=== PATIENT | male | born 1975 | race Caucasian/White ===

== ENCOUNTER 2023-10-07 10:20 | Outpatient (REF) | payer MEDICAID, SELFPAY ==
--- NOTE | 2023-10-07 09:45 | TONSIL_PTH ---
PATIENT: Camilo Mccoy LOC: [facility] U#:[id number] AGE/SX: 47/M ROOM: RE10/07/[address]: Ross Loaiza MD : [id number] BED: DIS: 10/07/2023 SPEC #: [id number] RECD: 10/07/23 13:02 STATUS: MARY RENAE #: [id number] JUDY: 10/07/23 09:[address]: Ross Loaiza DEPT: Surgical Specimen RECD BY: Tomasa Plummer ENTERED: 10/07/23 13:03 SP TYPE: TONSIL OTHR DR: Julieta Bartlett Tissues: 1 - TONSIL BIOPSY Procedures: GROSS AND MICRO LEVEL 4 IMMUNOPEROXIDASE STAIN Comments: [id number]
== END 2023-10-07 10:21 | disposition home or self-care (01) ==
LOC: LBN 10:20
PROVIDERS: PCP Family Medicine; Visit Provider Otolaryngology
DX: R59.1 Generalized enlarged lymph nodes (principal); J35.8 Other chronic diseases of tonsils and adenoids
CPT/HCPCS: 88305; 88361

== ENCOUNTER 2024-02-17 05:28 | Outpatient (RCR) | payer MEDICAID, SELFPAY ==
[2024-02-03] MEDS: Normal Saline Flush 10 ML SYR IVP (10:16)
[2024-02-03 10:33] LABS: Abs Immature Grans 0.03 10^3/uL (0.0-0.06); Absolute Basophil Count 0.02 10^3/uL (0.0-0.2); Absolute Eosinophil Count 0.03 10^3/uL (0.0-0.7); Absolute Lymphocyte Count 1.08 10^3/uL (1.2-3.4); Absolute Monocyte Count 0.49 10^3/uL (0.1-0.8); Absolute Neutrophil Count 4.29 10^3/uL (1.2-6.7); Basophils % 0.3; Eosinophils % 0.5; HCT 44.6 % (40.0-50.0); HGB 15.7 g/dL (13.5-17.5); Immature Grans % 0.5; Lymphocytes % 18.2; MCH 33.3 pg (27.0-33.0); MCHC 35.2 % (32.0-36.0); MCV 95 fL (80-95); MPV 9.1 fL (8.0-11.0); Monocytes % 8.2; Neutrophils % 72.3; Platelet Count 281 10^3/uL (130-400); RBC 4.72 10^6/uL (4.36-5.78); RDW-SD 38.2 fL; WBC 5.94 10^3/uL (4.4-10.8)
[2024-02-03 11:03] LABS: ALT 38 U/L (16-63); AST 21 U/L (15-37); Albumin 3.7 g/dL (3.4-5.0); Alkaline Phosphatase 61 U/L (46-116); Anion Gap 7.4 mmol/L (3-11); BUN 20 mg/dL (7-18); Bilirubin, Total 0.7 mg/dL (0.2-1.0); CO2 30.6 mmol/L (21.0-32.0); CREATININE 0.7 mg/dL (0.70-1.30); Chloride 101 mmol/L (98-107); Estimated GFR 112.25 (mL/min/1.73m2); Glucose 91 mg/dL (74-106); Magnesium 2.1 mg/dL (1.8-2.4); Potassium 4.2 mmol/L (3.5-5.1); Sodium 139 mmol/L (136-145); Total Protein 7.5 g/dL (6.4-8.2)
[2024-02-10 10:06] LABS: Abs Immature Grans 0.01 10^3/uL (0.0-0.06); Absolute Basophil Count 0.01 10^3/uL (0.0-0.2); Absolute Eosinophil Count 0.03 10^3/uL (0.0-0.7); Absolute Lymphocyte Count 0.65 10^3/uL (1.2-3.4); Absolute Monocyte Count 0.36 10^3/uL (0.1-0.8); Absolute Neutrophil Count 3.48 10^3/uL (1.2-6.7); Basophils % 0.2; Eosinophils % 0.7; HGB 14.3 g/dL (13.5-17.5); Immature Grans % 0.2; Lymphocytes % 14.3; MCH 33.1 pg (27.0-33.0); MCHC 35.8 % (32.0-36.0); MCV 93 fL (80-95); MPV 9.1 fL (8.0-11.0); Monocytes % 7.9; Neutrophils % 76.7; Platelet Count 227 10^3/uL (130-400); RBC 4.32 10^6/uL (4.36-5.78); RDW 10.9 % (11.8-14.1); WBC 4.54 10^3/uL (4.4-10.8)
[2024-02-10] MEDS: Normal Saline Flush 10 ML SYR IVP (10:07)
[2024-02-10 10:38] LABS: ALT 31 U/L (16-63); AST 17 U/L (15-37); Albumin 3.4 g/dL (3.4-5.0); Alkaline Phosphatase 60 U/L (46-116); Anion Gap 8.6 mmol/L (3-11); BUN 17 mg/dL (7-18); Bilirubin, Total 0.4 mg/dL (0.2-1.0); CO2 28.4 mmol/L (21.0-32.0); CREATININE 0.8 mg/dL (0.70-1.30); Calcium 8.5 mg/dL (8.5-10.1); Chloride 103 mmol/L (98-107); Estimated GFR 107.82 (mL/min/1.73m2); Glucose 154 mg/dL (74-106); Magnesium 1.8 mg/dL (1.8-2.4); Potassium 3.8 mmol/L (3.5-5.1); Sodium 140 mmol/L (136-145); Total Protein 6.8 g/dL (6.4-8.2)
[2024-02-17] MEDS: Normal Saline Flush 10 ML SYR IVP (09:39)
[2024-02-17 10:13] LABS: Abs Immature Grans 0.01 10^3/uL (0.0-0.06); Absolute Basophil Count 0.01 10^3/uL (0.0-0.2); Absolute Eosinophil Count 0.03 10^3/uL (0.0-0.7); Absolute Lymphocyte Count 0.53 10^3/uL (1.2-3.4); Absolute Monocyte Count 0.34 10^3/uL (0.1-0.8); Basophils % 0.2; Eosinophils % 0.7; HCT 38.8 % (40.0-50.0); Immature Grans % 0.2; Lymphocytes % 12.5; MCH 33.6 pg (27.0-33.0); MCHC 36.1 % (32.0-36.0); MCV 93 fL (80-95); MPV 8.8 fL (8.0-11.0); Neutrophils % 78.4; Platelet Count 187 10^3/uL (130-400); RBC 4.17 10^6/uL (4.36-5.78); RDW 11.1 % (11.8-14.1); RDW-SD 37.2 fL; WBC 4.23 10^3/uL (4.4-10.8)
[2024-02-17 10:14] LABS: Absolute Neutrophil Count 3.32 10^3/uL (1.2-6.7)
[2024-02-17 10:25] LABS: ALT 32 U/L (16-63); AST 13 U/L (15-37); Albumin 3.3 g/dL (3.4-5.0); Alkaline Phosphatase 56 U/L (46-116); Anion Gap 7.9 mmol/L (3-11); BUN 11 mg/dL (7-18); Bilirubin, Total 0.4 mg/dL (0.2-1.0); CO2 29.1 mmol/L (21.0-32.0); CREATININE 0.9 mg/dL (0.70-1.30); Calcium 8.3 mg/dL (8.5-10.1); Chloride 102 mmol/L (98-107); Estimated GFR 104.05 (mL/min/1.73m2); Glucose 192 mg/dL (74-106); Magnesium 1.8 mg/dL (1.8-2.4); Potassium 3.6 mmol/L (3.5-5.1); Sodium 139 mmol/L (136-145); Total Protein 6.6 g/dL (6.4-8.2)
== END 2024-02-18 23:59 | disposition home or self-care (01) ==
LOC: INF 05:28
PROVIDERS: PCP Family Medicine; Visit Provider Nurse Practitioner
DX: C09.9 Malignant neoplasm of tonsil, unspecified (principal); Z45.2 Encounter for adjustment and management of vascular access device
CPT/HCPCS: 36591; 80053; 83735; 85025

== ENCOUNTER 2024-03-09 05:16 | Outpatient (RCR) | payer MEDICAID, SELFPAY ==
[2024-02-24] MEDS: Normal Saline Flush 10 ML SYR IVP (09:35)
[2024-02-24 09:55] LABS: Abs Immature Grans 0.01 10^3/uL (0.0-0.06); Absolute Basophil Count 0.01 10^3/uL (0.0-0.2); Absolute Eosinophil Count 0.02 10^3/uL (0.0-0.7); Absolute Lymphocyte Count 0.43 10^3/uL (1.2-3.4); Absolute Monocyte Count 0.39 10^3/uL (0.1-0.8); Absolute Neutrophil Count 2.17 10^3/uL (1.2-6.7); Basophils % 0.3 %; Eosinophils % 0.7 %; HCT 37.6 % (40.0-50.0); HGB 13.4 g/dL (13.5-17.5); Immature Grans % 0.3 %; Lymphocytes % 14.2 %; MCH 32.8 pg (27.0-33.0); MCHC 35.6 % (32.0-36.0); MCV 92 fL (80-95); MPV 8.5 fL (8.0-11.0); Monocytes % 12.9 %; Neutrophils % 71.6 %; Platelet Count 125 10^3/uL (130-400); RBC 4.09 10^6/uL (4.36-5.78); RDW 10.9 % (11.8-14.1); RDW-SD 35.9 fL; WBC 3.03 10^3/uL (4.4-10.8)
[2024-02-24 10:16] LABS: ALT 36 U/L (16-63); AST 14 U/L (15-37); Albumin 3.5 g/dL (3.4-5.0); Alkaline Phosphatase 55 U/L (46-116); Anion Gap 6.3 mmol/L (3-11); BUN 10 mg/dL (7-18); Bilirubin, Total 0.6 mg/dL (0.2-1.0); CO2 30.7 mmol/L (21.0-32.0); CREATININE 0.8 mg/dL (0.70-1.30); Calcium 8.7 mg/dL (8.5-10.1); Chloride 103 mmol/L (98-107); Estimated GFR 107.82 (mL/min/1.73m2); Glucose 98 mg/dL (74-106); Magnesium 1.9 mg/dL (1.8-2.4); Potassium 3.9 mmol/L (3.5-5.1); Sodium 140 mmol/L (136-145); Total Protein 6.7 g/dL (6.4-8.2)
[2024-03-02] MEDS: Normal Saline Flush 10 ML SYR IVP (09:44)
[2024-03-02 10:03] LABS: Abs Immature Grans 0.01 10^3/uL (0.0-0.06); Absolute Basophil Count 0.01 10^3/uL (0.0-0.2); Absolute Eosinophil Count 0.01 10^3/uL (0.0-0.7); Absolute Lymphocyte Count 0.45 10^3/uL (1.2-3.4); Absolute Monocyte Count 0.29 10^3/uL (0.1-0.8); Absolute Neutrophil Count 1.41 10^3/uL (1.2-6.7); Basophils % 0.5 %; Eosinophils % 0.5 %; HCT 34.6 % (40.0-50.0); HGB 12.5 g/dL (13.5-17.5); Immature Grans % 0.5 %; Lymphocytes % 20.6 %; MCH 32.6 pg (27.0-33.0); MCHC 36.1 % (32.0-36.0); MCV 90 fL (80-95); Monocytes % 13.3 %; Neutrophils % 64.6 %; Platelet Count 122 10^3/uL (130-400); RBC 3.84 10^6/uL (4.36-5.78); RDW-SD 35.2 fL; WBC 2.18 10^3/uL (4.4-10.8)
[2024-03-02 10:26] LABS: ALT 49 U/L (16-63); AST 22 U/L (15-37); Albumin 3.6 g/dL (3.4-5.0); Alkaline Phosphatase 58 U/L (46-116); Anion Gap 7.9 mmol/L (3-11); BUN 10 mg/dL (7-18); Bilirubin, Total 0.6 mg/dL (0.2-1.0); CO2 29.1 mmol/L (21.0-32.0); CREATININE 0.8 mg/dL (0.70-1.30); Calcium 8.7 mg/dL (8.5-10.1); Chloride 103 mmol/L (98-107); Estimated GFR 107.82 (mL/min/1.73m2); Glucose 101 mg/dL (74-106); Potassium 4.2 mmol/L (3.5-5.1); Sodium 140 mmol/L (136-145)
[2024-03-09] MEDS: Normal Saline Flush 10 ML SYR IVP (10:39)
[2024-03-09 10:46] LABS: Absolute Eosinophil Count 0.01 10^3/uL (0.0-0.7); Absolute Lymphocyte Count 0.29 10^3/uL (1.2-3.4); Absolute Monocyte Count 0.39 10^3/uL (0.1-0.8); Absolute Neutrophil Count 1.06 10^3/uL (1.2-6.7); Eosinophils % 0.6 %; HCT 32.3 % (40.0-50.0); HGB 11.8 g/dL (13.5-17.5); Lymphocytes % 16.6 %; MCH 33.1 pg (27.0-33.0); MCHC 36.5 % (32.0-36.0); MCV 91 fL (80-95); MPV 9.1 fL (8.0-11.0); Monocytes % 22.3 %; Neutrophils % 60.5 %; Platelet Count 229 10^3/uL (130-400); RBC 3.56 10^6/uL (4.36-5.78); RDW 12.3 % (11.8-14.1); RDW-SD 37.9 fL
[2024-03-09 11:01] LABS: ALT 31 U/L (16-63); AST 14 U/L (15-37); Albumin 3.5 g/dL (3.4-5.0); Alkaline Phosphatase 54 U/L (46-116); Anion Gap 4.3 mmol/L (3-11); BUN 19 mg/dL (7-18); Bilirubin, Total 0.5 mg/dL (0.2-1.0); CO2 30.7 mmol/L (21.0-32.0); CREATININE 0.8 mg/dL (0.70-1.30); Calcium 8.8 mg/dL (8.5-10.1); Chloride 105 mmol/L (98-107); Estimated GFR 107.82 (mL/min/1.73m2); Glucose 72 mg/dL (74-106); Magnesium 2.1 mg/dL (1.8-2.4); Potassium 4.4 mmol/L (3.5-5.1); Sodium 140 mmol/L (136-145); Total Protein 6.9 g/dL (6.4-8.2)
[2024-03-09 11:24] LABS: Diff Comment Agrees w/ Instrument; RBC Morphology Normal; WBC 1.75 10^3/uL (4.4-10.8)
== END 2024-03-20 23:59 | disposition home or self-care (01) ==
LOC: INF 05:16
PROVIDERS: PCP Family Medicine; Visit Provider Nurse Practitioner
DX: C09.9 Malignant neoplasm of tonsil, unspecified (principal); Z45.2 Encounter for adjustment and management of vascular access device
CPT/HCPCS: 36591; 80053; 83735; 85025

== ENCOUNTER 2024-03-23 12:11 | Outpatient (RCR) | payer MEDICAID, SELFPAY ==
[2024-03-23] MEDS: Normal Saline Flush 10 ML SYR IVP (12:18)
[2024-03-23 12:41] LABS: Abs Immature Grans 0.02 10^3/uL (0.0-0.06); Absolute Basophil Count 0.01 10^3/uL (0.0-0.2); Absolute Eosinophil Count 0.01 10^3/uL (0.0-0.7); Absolute Lymphocyte Count 0.35 10^3/uL (1.2-3.4); Absolute Monocyte Count 0.45 10^3/uL (0.1-0.8); Absolute Neutrophil Count 1.75 10^3/uL (1.2-6.7); Basophils % 0.4 %; Eosinophils % 0.4 %; HCT 33.3 % (40.0-50.0); HGB 11.8 g/dL (13.5-17.5); Immature Grans % 0.8 %; Lymphocytes % 13.5 %; MCH 33.2 pg (27.0-33.0); MCHC 35.4 % (32.0-36.0); MCV 94 fL (80-95); Monocytes % 17.4 %; Neutrophils % 67.5 %; Platelet Count 255 10^3/uL (130-400); RBC 3.55 10^6/uL (4.36-5.78); RDW 13.7 % (11.8-14.1); WBC 2.59 10^3/uL (4.4-10.8)
[2024-03-23 13:01] LABS: ALT 26 U/L (16-63); AST 17 U/L (15-37); Albumin 3.6 g/dL (3.4-5.0); Alkaline Phosphatase 52 U/L (46-116); Anion Gap 7.2 mmol/L (3-11); BUN 18 mg/dL (7-18); Bilirubin, Total 0.4 mg/dL (0.2-1.0); CO2 30.8 mmol/L (21.0-32.0); CREATININE 0.7 mg/dL (0.70-1.30); Calcium 8.9 mg/dL (8.5-10.1); Chloride 104 mmol/L (98-107); Estimated GFR 112.25 (mL/min/1.73m2); Glucose 91 mg/dL (74-106); Magnesium 2.1 mg/dL (1.8-2.4); Potassium 4.2 mmol/L (3.5-5.1); Sodium 142 mmol/L (136-145); Total Protein 6.9 g/dL (6.4-8.2)
== END 2024-04-19 23:59 | disposition home or self-care (01) ==
LOC: INF 12:11
PROVIDERS: PCP Family Medicine; Visit Provider Nurse Practitioner
DX: C09.9 Malignant neoplasm of tonsil, unspecified (principal)
CPT/HCPCS: 36591; 80053; 83735; 85025

== ENCOUNTER 2024-04-20 11:06 | Outpatient (RCR) | payer MEDICAID, SELFPAY ==
[2024-04-20 11:00] LABS: Abs Immature Grans 0.01 10^3/uL (0.0-0.06); Absolute Basophil Count 0.01 10^3/uL (0.0-0.2); Absolute Eosinophil Count 0.03 10^3/uL (0.0-0.7); Absolute Lymphocyte Count 0.45 10^3/uL (1.2-3.4); Absolute Monocyte Count 0.34 10^3/uL (0.1-0.8); Absolute Neutrophil Count 1.42 10^3/uL (1.2-6.7); Basophils % 0.4 %; Eosinophils % 1.3 %; HCT 35.2 % (40.0-50.0); HGB 12.4 g/dL (13.5-17.5); Immature Grans % 0.4 %; Lymphocytes % 19.9 %; MCH 33.8 pg (27.0-33.0); MCHC 35.2 % (32.0-36.0); MCV 96 fL (80-95); MPV 9.6 fL (8.0-11.0); Platelet Count 159 10^3/uL (130-400); RBC 3.67 10^6/uL (4.36-5.78); RDW 13.2 % (11.8-14.1); RDW-SD 47.2 fL; WBC 2.26 10^3/uL (4.4-10.8)
--- OUTSIDE RECORDS SUMMARY | 2024-04-20 11:07 | XMS_ITS | Continuity of Care Document ---
Author Name [facility] Address [address] [place] [address] Organization [facility] Address [address] [place] [address] Care Team Providers Care Field Recorder Name Role Phone OlivierLiborio dahl Primary Care Physician [phone] Kourtney Cisse Attending Physician Allergies, Adverse Reactions, Alerts No known allergies. Medications Active Medications Medication Dose Units Route Sig Start Date Status Ibuprofen [Motrin Ib] 200 MG ORAL Q6H PRN December 21 Active Cholecalciferol (Vitamin D3) 25 MCG ORAL DAILY Dec Active Ascorbic Acid (Vitamin C) MG ORAL December 21, 2021 Active Zinc 50 MG ORAL DAILY December 21, 2021 Active Garlic [Garlic Oil] 1000 MG ORAL DAILY December 21 Active Multivitamin 5 ML ORAL DAILY December 21, 2021 Activ e Problem List Active Problems Medical Problem Onset Date Status Tailor's bunion of both feet Act rosie Procedures Procedure Date Status Foot 3 vw Min Bilat December 21, 2021 completed Relevant Diagnostic Tests and/or Laboratory Data No known relevant diagnostic tests, laboratory data, and/or discharge summary. Advance Directives Advance Directive Response Recorded Date/ Time Do we have a copy on file here at [facility]? No December 21, 2021 2:54pm Does patient have an Advanced Directive? Yes December 21, 2021 2:54pm Pt has a Living Will? No December 21 2:54pm Pt has a Power of Pretzel Packer? Yes Rebecca prince 2021 2:54pm Chief Complaint and Reason for Visit Encounter Admit Date Chief Complaint Reason for V isit Departed Clinical December 21, 2021 3:34pm XR Hospital Discharge Instructions No known hospital discharge instructions. Hospital Discharge Medications Medication Dose Units Route Sig Qty Days Order Date Status Ins tructions Ibuprofen 200 MG ORAL Q6H PRN December 21, 2021 Active Cholecalciferol (Vitamin D3) 25 MCG ORAL DAILY December Active Ascorbic Acid (Vitamin C) MG ORAL December 21, 2021 Active Zinc 50 MG ORAL DAILY December 21, 2021 Active Garlic 1000 MG ORAL DAILY December 21, 2021 Active Multivitamin [address] [facility] 2021 Active Encounters Encounter Facility Location Admit/Visit Date Discharge/Departure Date Attending Provider Departed Clinical [facility] [place] Orthopedics December 21, 2021 3:34pm December 21, 2021 3:35pm Kourtney Cisse Departed Physician/Pr ovider Office Visit [facility] Orthopedic&Lizbeth ab December 21, 2021 2:54pm December 21, 2021 11:59pm Kourtney Cisse Functional Status No known functional status. Immunizations No known immunizations. Plan of Care No Known Plan of Care Information Social History No known social history. Vital Signs Vital Reading Result Reference Range Collection Date/Time Height 5 ft 8 in December 21, 2021 3 :13pm Weight 95.254 kg December 21, 2021 3 :13pm Pulse 90 BPM 60-100 December 21, 2021 3 :13pm Pulse Oximetry 98 % 95-100 December 21, 2021 3:13pm Blood Pressure Systolic 160 100-140 Rebecca h 2021 3:13pm Blood Pressure Diastolic 90 50-85 [facility] 2021 3:13pm Body Mass Index 31.9 December 21 3:13pm
--- OUTSIDE RECORDS SUMMARY | 2024-04-20 11:08 | XMS_ITS | Continuity of Care Document ---
Author Name Unknown Organization [facility] Address [address] [place] [address] Care Team Providers Care Director Of Digital Marketing Name Role Phone Shanae Waldron Primary Care Physician Encounter [facility] Date(s): 10/10/23 - 12/18/23 [facility] [address] [place] [address] Discharge Disposition: Home or Self Care Attending Physician: Juan Presley MD Admitting Physician: Juan Presley MD Referring Physician: Juan Presley MD Allergies, Adverse Reactions, Alerts No Known Medication Allergies Immunizations Given and Recorded Vaccine Date Status Refusal Reason tetanus/diphth/pertuss (Tdap) adult/adol 10/21/05 Recorded Medications ascorbic acid 1000 mg oral tablet 0 Refill(s), 0 Refill(s) Start Date: 09/25/23 Status: Ordered Multi Vitamin+ 0 Refill(s), 0 Refill(s) Start Date: 09/25/23 Status: Ordered naltrexone See Instructions, 4.5 mg tab, 0 Refill(s) Start Date: 09/25/23 Status: Ordered testosterone cypionate 200 mg/mL intramuscular solution 200 mg = 1 mL, Intramuscular, every 2 wk, 0 Refill(s) Start Date: 09/25/23 Status: Ordered Problem List Condition Confirmation Course Effective Dates Status H ealth Status Informant Elevated blood pressure reading Confirmed Active Fatigue due to excessive exertion Confirmed Active Testosterone deficiency Confirmed Active Elevated LDL cholesterol level Confirmed Active Neck swelling Confirmed Active Primary osteoarthritis of right knee Confirmed Active Vitamin D deficiency Confirmed Active Social History Social History Type Response Sex Male Patient Care team information Care Team Personnel Name: Shanae Waldron ND Position: No Access Member Role: Informed Provider Address: Address: [address] [place] [address]- Care Team Related Persons Name: SAMUEL YOUNG Name: ELMER YOUNG
--- OUTSIDE RECORDS SUMMARY | 2024-04-20 11:08 | XMS_ITS | Continuity of Care Document ---
Author Name Unknown Address [address] [place] [address] Phone [facility] Address [address] [place] [address] Phone Care Team Providers Care Therapeutic Activities Services Worker Name Role Phone Liborio Mondragon Primary Care Provider JOSE Cisse Attending Provider Chief Complaint and Reason for Visit Chief Complaint CALLUSES XR Reason for Visit Tailor's bunion of b oth feet Allergies, Adverse Reactions, Alerts No known allergies Social History Smoking Status Unknown if ever smoked Additional Data Assigned Sex Male Problems Active Problems Medical Problem Onset Date Status Tailor's bunion of both feet Act rosie Medications Medication Status Dose Units Route Directions Qty Days St art Date End Date Instructions Ibuprofen (Motrin Ib) 200 mg tablet Active 200 MG PO Q6H December 21, 2021 3:16pm Cholecalciferol (Vitamin D3) Active 25 MCG PO DAILY December 21, 2021 3:16pm Ascorbic Acid (Vitamin C) Active MG PO December 21, 2021 3:17pm Zinc Active 50 MG PO DAILY December 21, 2021 3:17pm Garlic (Garlic Oil) 1,000 mg capsule Active 1000 MG PO DAILY December 21, 2021 3:18pm Multivitamin Active 5 ML PO DAILY [facility] 2021 3:19pm Procedures Procedure Date Performed Status Foot 3 vw Min Bilat December 21, 2021 3:49pm compl eted Vital Signs Vital Reading Result Reference Range Collection Date/Time Height 68 [in_i] December 21, 2021 3:13pm Weight 95.25 kg December 21, 2021 3:13pm Heart Rate 90 /min 60-100 December 21, 2021 3:13pm Oxygen saturation by Pulse oximetry 98 % 95-10 0 December 21, 2021 3:13pm BP Systolic 160 mm[Hg] 100-140 December 21, 2021 3:13pm BP Diastolic 90 mm[Hg] 50-85 December 21, 2021 3:13pm BMI (Body Mass Index) 31.9 kg/m2 December 21, 2021 3:13pm Advance Directives Advance Directive Response Recorded Date/ Time Does patient have an Advanced Directive? Yes December 21, 2021 2:54pm Do we have a copy on file here at [facility]? No December 21, 2021 2:54pm Pt has a Living Will? No December 21, 2021 2:54pm Do we have a copy on file here at [facility]? No December 21, 2021 2:54pm Pt has a Power of Measuring Machine Tender? Yes Rebecca prince 2021 2:54pm Do we have a copy on file here at [facility]? No December 21, 2021 2:54pm Insurance Providers Guarantor REBECCA YOUNG Address [address] [facility] [address] Contact Info. Home Phone: Payer Policy Id Coverage Id Subscriber's Name Subscriber Id Effective Date Expiration Date [facility] [id number] REBECCA YOUNG [id number] [place] [id number] REBECCA YOUNG [id number] SELF PAY Self N/A Encounters Encounter Location(s) Arrival/Admit Date Discharge/Depart Date Provider(s) Departed [facility] December 21, 2021 2:54pm December 21, 2021 11:59pm Kourtney Cisse DPM Departed Clinical [facility] Orthopedics December 21, 2021 3:34pm December 21, 2021 3:35pm Kourtney Cisse DPM Recent Diagnosis Onset Date Tailor's bunion of both feet Assessments Diagnosis Onset Date Resolution Status Tailor's bunion of both feet acute Plan of Treatment Debrided callus bilateral fifth metatarsals with #10 blade. Patient tolerated well. Educated patient about tailor's bunion, provided handout. Recommend wider shoe gear and provided patient with multiple shoe options including Hoka, Altra. We also discussed surgical correction of the tailor's bunion, patient is a lisa and unable to consider surgical correction at this time. Patient return as needed. Future Tests Future scheduled test information is unavailable Pending Tests Pending diagnostic test information is unavailable Future Visits Future appointment information is unavailable Referrals to Other Providers Referral information is unavailable Future Procedures Future procedure information is unavailable Future Medications Future medication information is unavailable Patient Instructions Patient instructions are unavailable
--- OUTSIDE RECORDS SUMMARY | 2024-04-20 11:08 | XMS_ITS | Continuity of Care Document ---
Author Name Unknown Organization [facility] Address [address] [place] [address] Care Team Providers Care Industrial Service Technician Name Role Phone Shanae Waldron Primary Care Physician [phone] Encounter [facility] Date(s): 05/28/23 - 05/28/23 [facility] [address] [place] [address] Discharge Disposition: Home or Self Care Attending Physician: Shanae Waldron ND Admitting Physician: Shanae Waldron ND Referring Physician: Shanae Waldron ND Allergies, Adverse Reactions, Alerts No Known Medication Allergies Assessment and Plan Diagnostic Tests Pending * Insulin [facility] 05/28/23 Immunizations Given and Recorded Vaccine Date Status Refusal Reason tetanus/diphth/pertuss (Tdap) adult/adol 10/21/05 Recorded Results Laboratory List Name Date Comprehensive Metabolic Panel 05/28/23 DHEA Sulfate [facility] 05/28/23 Hemoglobin A1c 05/28/23 Lipid Panel 05/28/23 Testosterone, Total and Free [facility] 05/28/23 Vitamin D, 25-OH Total [facility] 05/28/23 Most recent to oldest [Reference Range]: 1 BUN [7-18 mg/dL] 13 mg/dL (05/28/23 11:35 AM) Cholesterol Total [50-200 mg/dL] 253 mg/ dL *HI* (05/28/23 11:35 AM) LDL [0-130 mg/dL] 184 mg/dL *HI* (05/28/23 11:35 AM) Glucose Level [74-106 mg/dL] 94 mg/dL (05/28/23 11:35 AM) Potassium Level [3.5-5.1 mmol/L] 3.9 mmo l/L (05/28/23 11:35 AM) HDL [40-60 mg/dL] 53 mg/dL (05/28/23 11:35 AM) AST [15-37 unit/L] 34 unit/L (05/28/23 11:35 AM) ALT [16-63 unit/L] 71 unit/L *HI* (05/28/23 AM) Sodium Level [136-145 mmol/L] 139 mmol/L (05/28/23 11:35 AM) Triglycerides [0-150 mg/dL] 82 mg/dL (05/28/23 11:35 AM) Calcium Level [8.5-10.1 mg/dL] 8.9 mg/dL (05/28/2335 AM) Albumin Level [3.4-5.0 g/dL] 3.9 g/dL (05/28/23:35 AM) Protein Total [6.4-8.2 g/dL] 7.3 g/dL (05/28/23:35 AM) Bilirubin Total [0.2-1.0 mg/dL] 0.6 mg/d L (05/28/23:35 AM) Alk Phos [46-146 unit/L] 48 unit/L (05/28/23:35 AM) CO2 [21-32 mmol/L] 28 mmol/L (05/28/23 11:35 AM) eGFR Non-AA [>=60] 107 (05/28/23 11:35 AM) eGFR AA [>=60] 107 (05/28/23 11:35 AM) Hemoglobin A1c [4.0-6.0 %] 5.4 % (05/28/23 11:35 AM) Chloride Level [98-107 mmol/L] 103 mmol/ L (05/28/23 11:35 AM) Creatinine Level [0.70-1.30 mg/dL] 0.83 mg/dL (05/28/23:35 AM) DHEA Sulfate [facility] [136-448 mcg/dL] 311 mc g/dL 2 *NA* (05/28/23:35 AM) Testosterone [facility] [229-902 ng/dL] 175 ng/ dL 3 *LOW* (05/28/23 11:35 AM) Sex Hormone Bnd Glob [facility] [11.5-54.5 nmol /L] 27.1 nmol/L 4 *NA* (05/28/23 11:35 AM) Free Testosterone [facility] [4.0-14.5 ng/dL] 3 .7 ng/dL 5 *LOW* (05/28/23 11:35 AM) Vitamin D, 25-OH, Total [facility] [30-100 ng/m L] 40 ng/mL 6 *NA* (05/28/23 11:35 AM) 2Result Comment: Test performed [place] [id number] 3Result Comment: The results of this assay can be falsley elevated due to the consumption of Biotin. 4Result Comment: The results of this assay can be falsely lowered due to the consumption of Biotin. 5Result Comment: This test is not recommended in patients with plasma protein abnormalities. Test performed [place] [id number] 6Result Comment: Vitamin D 25,OH Interpretive Ranges: Deficiency: <10.0 ng/mL Insufficiency: 10.0 - 30.0 ng/mL Sufficiency: 30.0 - 100.0 ng/mL Toxicity: >100.0 ng/mL Test performed [place] [id number] Social History Social History Type Response Sex Male Patient Care team information Care Team Personnel Name: Shanae Waldron ND Position: No Access Member Role: Informed Provider Address: Address: [address] [place], [place] [id number] [place] [address] Care Team Related Persons Name: ELMER YOUNG
--- OUTSIDE RECORDS SUMMARY | 2024-04-20 11:08 | XMS_ITS | Continuity of Care Document ---
Author Name [facility] Address [address] [place] [address] Organization [facility] Address [address] [place] [address] Support Name Relationship Address Phone Kourtney Cisse Attending Provider [facility] Or thopaedics [address] [facility] [address] [place] [address] Liborio Mondragon Primary Care Provider [address] [place] [address] Referral, Self Referring Provider Unknown Unavail able Allergies, Adverse Reactions, Alerts No known allergies. [...] have a copy on file here at [facility]? No December 21, 2021 2:54pm Does patient have an Advanced Directive? Yes December 21, 2021 2:54pm Pt has a Living Will? No December 21 2:54pm Pt has a Power of Butter Liquefier? Yes Rebecca prince 2021 2:54pm Chief Complaint and Reason for Visit Encounter Admit Date Chief Complaint Reason for V isit Registered Physician/Provider Office Visit December 21, 2021 2:54pm CALLUSES Tailor's bunion of both feet Hospital Discharge Instructions No known hospital discharge [...] 2021 Active Multivitamin 5 ML ORAL DAILY [facility] 2021 Active Encounters Encounter Facility Location Admit/Visit Date Discharge/Departure Date Attending Provider Registered Clinical [facility] [place] [facility] Orthopedics December 21, 2021 3:34pm Kourtney Cisse Registered Physician/Pr ovider Office Visit [facility] Orthopedic&Lizbeth ab December 21, 2021 2:54pm Kourtney Cisse Encounter Diagnosis Onset Date Tailor's bunion of both feet Functional Status No known functional status. Immunizations [...] 2021 3:13pm Blood Pressure Diastolic 90 50-85 [facility] 2021 3:13pm Body Mass Index 31.9 December 21 3:13pm
--- OUTSIDE RECORDS SUMMARY | 2024-04-20 11:08 | XMS_ITS | Continuity of Care Document ---
Author Name Unknown Address [address] [place] [address] Phone [facility] Address [address] [place] [address] Phone Care Team Providers Care Real Estate Director Name Role Phone Liborio Mondragon Primary Care [...] 3:18pm Multivitamin Active 5 ML PO DAILY [facility] 2021 3:19pm Procedures Procedure Date Performed Status [...] have a copy on file here at [facility]? No December 21, 2021 2:54pm Pt has a Living Will? No December 21, 2021 2:54pm Do we have a copy on file here at [facility]? No December 21, 2021 2:54pm Pt has a Power of Value Engineer? Yes Rebecca prince 2021 2:54pm Do we have a copy on file here at [facility]? No December 21, 2021 2:54pm Insurance Providers Guarantor REBECCA YOUNG Address [address] [facility] [address] Contact Info. Home Phone: Payer Policy Id Coverage Id Subscriber's Name Subscriber Id Effective Date Expiration Date [facility] [id number] REBECCA YOUNG [id number] [place] [id number] REBECCA YOUNG [id number] SELF PAY Self N/A Encounters Encounter Location(s) Arrival/Admit Date Discharge/Depart Date Provider(s) [facility]ed [facility] December 21, 2021 2:54pm December 21, 2021 11:59pm Kourtney Cisse DPM [facility] December 21, 2021 3:34pm December 21, [...]
--- OUTSIDE RECORDS SUMMARY | 2024-04-20 11:08 | XMS_ITS | Continuity of Care Document ---
Author Name Unknown Organization [facility] Address [address] [place] [address] Care Team Providers Care Fuel Storage Technician Name Role Phone Shanae Waldron Primary Care Physician [phone] Encounter [facility] Date(s): 09/04/23 - 09/04/23 [facility] [address] [place] [address] Discharge Disposition: Home or Self Care Attending Physician: Shanae Waldron ND Admitting Physician: Shanae Waldron ND Referring Physician: Shanae Waldron ND Allergies, Adverse Reactions, Alerts No Known Medication Allergies Immunizations Given and Recorded Vaccine Date Status Refusal Reason tetanus/diphth/pertuss (Tdap) adult/adol 10/21/05 Recorded Social History Social History Type Response Sex Male Patient Care team information Care Team Personnel Name: Shanae Waldron ND Position: No Access Member Role: Informed Provider Address: Address: [address] [place] [address] [place] Care Team Related Persons Name: SAMUEL YOUNG Name: ELMER YOUNG
--- OUTSIDE RECORDS SUMMARY | 2024-04-20 11:08 | XMS_ITS | Continuity of Care Document ---
Author Name Unknown Organization [facility] Address [address] [place] [address] Care Team Providers Care Chief Projectionist Name Role Phone Shanae Waldron Primary Care Physician [facility] Date(s): 08/16/23 - 08/16/23 [facility] [address] [place] [address] Discharge Disposition: Home or Self Care Attending Physician: Shanae Waldron ND Admitting Physician: Shanae Waldron ND Referring Physician: Shanae Waldron ND Allergies, Adverse Reactions, Alerts No Known Medication Allergies Immunizations Given and Recorded Vaccine Date Status Refusal Reason tetanus/diphth/pertuss (Tdap) adult/adol 10/21/05 Recorded Results Laboratory List Name Date Automated Diff 08/16/23 CBC w/ Diff 08/16/23 Estradiol, Adults [facility] 08/16/23 PSA Screen 08/16/23 Testosterone, Total and Free [facility] 3 Most recent to oldest [Reference Range]: 1 WBC [5.0-10.0 x10^3/mcL] 3.6 x10^3/mcL *LOW* (08/16/23 8:44 AM) RBC [4.6-6.0 x10^6/mcL] 4.5 x10^6/mcL *LOW* (08/16/23 8:44 AM) Neutro Auto [40.0-75.0 %] 54.4 % (08/16/23 8:44 AM) Lymph Auto [20.0-50.0 %] 32.8 % (08/16/23 8:44 AM) Baca Auto [2.0-15.0 %] 11.4 % (08/16/23 8:44 AM) Basophil Auto [0.0-1.0 %] 0.3 % (08/16/23 8:44 AM) MCV [80.0-96.0 fL] 95.1 fL (08/16/23 8:44 AM) MCHC [31.0-35.0 g/dL] 35.4 g/dL *HI* (08/16/23 8:44 AM) Hct [41.0-51.0 %] 42.4 % (08/16/23 8:44 AM) MCH [26.0-32.0 pg] 33.6 pg *HI* (08/16/23 8:44 AM) Neutro Absolute 2.0 x10^3/mcL *NA* (08/16/23 8:44 AM) Hgb [14.0-18.0 g/dL] 15.0 g/dL (08/16/23 8:44 AM) Platelets [130-450 x10^3/mcL] 198 x10^3/ mcL (08/16/23 8:44 AM) RDW-CV [11.5-14.5 %] 11.7 % (08/16/23 8:44 AM) Imm Gran Auto [0.0-0.9 %] 0.3 % (08/16/23 8:44 AM) Estradiol [facility] [<40 pg/mL] 35 pg/mL 1 *NA* (08/16/23 8:44 AM) Testosterone [facility] [229-902 ng/dL] 783 ng/ dL 2 *NA* (08/16/23 8:44 AM) Sex Hormone Bnd Glob [facility] [11.5-54.5 nmol /L] 28.6 nmol/L 3 *NA* (08/16/23 8:44 AM) Free Testosterone [facility] [4.0-14.5 ng/dL] 1 9.4 ng/dL 4 *HI* (08/16/23 8:44 AM) PSA Total Screening [0.00-4.00 ng/mL] 1. 20 ng/mL 5 (08/16/23 8:44 AM) Eos, Auto [1.0-6.0 %] 0.8 % *LOW* (08/16/23 8:44 AM) 1Result Comment: Test performed [place] [address] 2Result Comment: The results of this assay can be falsley elevated due to the consumption of Biotin. 3Result Comment: The results of this assay can be falsely lowered due to the consumption of Biotin. 4Result Comment: This test is not recommended in patients with plasma protein abnormalities. Test performed [place] [address] 5Interpretive Data: The testing method is an heterogeneous enzyme Immunoassay manufactured by [employer] and performed on the LiveGOL system. Values obtained with different assay methods or kits may be different and cannot be used interchangeably. Test results cannot be interpreted as absolute evidence for the presence or absence of malignant disease. Social History Social History Type Response Sex Male Patient Care team information Care Team Personnel Name: Shanae Waldron ND Position: No Access Member Role: Informed Provider Address: Address: [address] [place] [id number] [place] [address] Care Team Related Persons Name: SAMUEL YOUNG Name: ELMER YOUNG
[2024-04-20 11:18] LABS: ALT 25 U/L (16-63); AST 15 U/L (15-37); Albumin 3.6 g/dL (3.4-5.0); Alkaline Phosphatase 61 U/L (46-116); Anion Gap 6.7 mmol/L (3-11); BUN 10 mg/dL (7-18); Bilirubin, Total 0.66 mg/dL (0.2-1.0); CO2 31.3 mmol/L (21.0-32.0); CREATININE 0.7 mg/dL (0.70-1.30); Calcium 8.6 mg/dL (8.5-10.1); Chloride 105 mmol/L (98-107); Estimated GFR 112.25 (mL/min/1.73m2); Glucose 122 mg/dL (74-106); Magnesium 1.8 mg/dL (1.8-2.4); Potassium 3.7 mmol/L (3.5-5.1); Sodium 143 mmol/L (136-145); Total Protein 6.8 g/dL (6.4-8.2)
[2024-04-20] MEDS: Normal Saline Flush 10 ML SYR IVP (15:04)
== END 2024-05-20 23:59 | disposition home or self-care (01) ==
LOC: INF 11:06
PROVIDERS: PCP Family Medicine; Visit Provider Nurse Practitioner
DX: C09.9 Malignant neoplasm of tonsil, unspecified (principal); Z45.2 Encounter for adjustment and management of vascular access device
CPT/HCPCS: 36591; 80053; 83735; 85025

== ENCOUNTER 2024-09-21 03:07 | Outpatient (RCR) | payer OTHER, SELFPAY ==
[2024-09-21 12:41] LABS: Abs Immature Grans 0.01 10^3/uL (0.0-0.06); Absolute Basophil Count 0.01 10^3/uL (0.0-0.2); Absolute Eosinophil Count 0.01 10^3/uL (0.0-0.7); Absolute Lymphocyte Count 0.53 10^3/uL (1.2-3.4); Absolute Monocyte Count 0.34 10^3/uL (0.1-0.8); Absolute Neutrophil Count 2.09 10^3/uL (1.2-6.7); Basophils % 0.3 %; Eosinophils % 0.3 %; HGB 14.8 g/dL (13.5-17.5); Immature Grans % 0.3 %; Lymphocytes % 17.7 %; MCH 33.9 pg (27.0-33.0); MCHC 36.1 % (32.0-36.0); MCV 94 fL (80-95); MPV 9.1 fL (8.0-11.0); Monocytes % 11.4 %; Platelet Count 186 10^3/uL (130-400); RBC 4.37 10^6/uL (4.36-5.78); RDW 11.2 % (11.8-14.1); RDW-SD 38.7 fL; WBC 2.99 10^3/uL (4.4-10.8)
[2024-09-21 13:05] LABS: ALT 49 U/L (16-63); AST 28 U/L (15-37); Albumin 3.9 g/dL (3.4-5.0); Alkaline Phosphatase 63 U/L (46-116); Anion Gap 9.4 mmol/L (3-11); BUN 16 mg/dL (7-18); Bilirubin, Total 0.64 mg/dL (0.2-1.0); CO2 25.6 mmol/L (21.0-32.0); Chloride 108 mmol/L (98-107); Estimated GFR 91.69 (mL/min/1.73m2); Glucose 98 mg/dL (74-106); Magnesium 2.1 mg/dL (1.8-2.4); Sodium 143 mmol/L (136-145); Total Protein 7.3 g/dL (6.4-8.2)
[2024-09-21 13:18] LABS: FREE T4 0.76 ng/dL (0.76-1.46)
== END 2024-10-20 23:59 | disposition home or self-care (01) ==
LOC: INF 03:07
PROVIDERS: Nurse Practitioner Gerontology; PCP Family Medicine; Visit Provider Nurse Practitioner
DX: C09.9 Malignant neoplasm of tonsil, unspecified (principal); D70.2 Other drug-induced agranulocytosis; Z79.899 Other long term (current) drug therapy
CPT/HCPCS: 36415; 80053; 83735; 84439; 84443; 85025

== ENCOUNTER 2024-12-16 16:09 | Outpatient (REF) | payer OTHER, SELFPAY ==
[2024-12-16 17:23] LABS: TSH 3.54 uIU/mL (0.36-3.74)
== END 2024-12-16 16:10 | disposition home or self-care (01) ==
LOC: LBN 16:09
PROVIDERS: PCP Family Medicine; Visit Provider Preventive Medicine Undersea and Hyperbaric Medicine
DX: C09.9 Malignant neoplasm of tonsil, unspecified (principal)
CPT/HCPCS: 84443